=== PATIENT | female | born 1950 | race Caucasian/White ===

== ENCOUNTER → 2017-07-06 | Outpatient (CLI) | payer BC ==
[~2017-07-06] MED LIST: AMLO5TAB2 PO; ATEN100T PO; GABA300S PO; HYDR-3422 PO; LORA2TAB2 PO; LOSA1TAB42 PO; METH500T6 PO; PANT20TA12 PO; PRAV40TA3 PO; TRAM-355 PO
== END ==
LOC: SHCH 09:26
PROVIDERS: ATTEND Internal Medicine Cardiovascular Disease
DX: I48.91 Unspecified atrial fibrillation (principal); I10 Essential (primary) hypertension
CPT/HCPCS: 93306

== ENCOUNTER → 2017-07-15 | Outpatient (CLI) | payer BC, SELFPAY | END | disposition home or self-care (01) | LOC: DTH 10:03 | PROVIDERS: ATTEND Surgery | DX: E66.01 Morbid (severe) obesity due to excess calories (principal) | CPT/HCPCS: 97802 ==

== ENCOUNTER → 2017-10-25 | Outpatient (CLI) | payer BC | END | disposition home or self-care (01) | LOC: OIH 12:50 | PROVIDERS: ATTEND Internal Medicine | DX: M47.894 Other spondylosis, thoracic region (principal); M40.294 Other kyphosis, thoracic region; M48.04 Spinal stenosis, thoracic region; M25.78 Osteophyte, vertebrae | CPT/HCPCS: 71046; 72070 ==

== ENCOUNTER → 2018-06-27 | Outpatient (CLI) | payer BC ==
[~2018-06-27] MED LIST changes: -AMLO5TAB2 PO; +AMLO5TAB9 PO
== END | disposition home or self-care (01) ==
LOC: RAH 12:51
PROVIDERS: ATTEND Internal Medicine
DX: K44.9 Diaphragmatic hernia without obstruction or gangrene (principal); I25.10 Atherosclerotic heart disease of native coronary artery without angina pectoris; Z90.49 Acquired absence of other specified parts of digestive tract
CPT/HCPCS: 71250

== ENCOUNTER → 2018-07-25 | Outpatient (CLI) | payer BC ==
[~2018-07-25] MED LIST changes: +REGADENOSON 0.4 MG/5 ML PF SYG IVP SCH
== END | disposition home or self-care (01) ==
LOC: SHCH 07-24 08:29
PROVIDERS: ATTEND Internal Medicine Cardiovascular Disease
DX: I25.10 Atherosclerotic heart disease of native coronary artery without angina pectoris (principal); I10 Essential (primary) hypertension; I35.0 Nonrheumatic aortic (valve) stenosis
CPT/HCPCS: 78452; 93017; 96374; A9500 ×2; J2785

== ENCOUNTER → 2018-09-27 | Outpatient (CLI) | payer BC, MEDICARE ==
[~2018-09-27] MED LIST changes: -REGADENOSON 0.4 MG/5 ML PF SYG IVP SCH
== END | disposition home or self-care (01) ==
LOC: RAH 15:24
PROVIDERS: ATTEND Internal Medicine
DX: M47.14 Other spondylosis with myelopathy, thoracic region (principal)
CPT/HCPCS: 72146

== ENCOUNTER → 2019-11-15 | Outpatient (CLI) | payer MEDICARE ==
[~2019-11-15] MED LIST changes: -PANT20TA12 PO; +PANT20TA18 PO
== END | disposition home or self-care (01) ==
LOC: SHCH 14:37
PROVIDERS: ATTEND Internal Medicine Cardiovascular Disease
DX: I34.0 Nonrheumatic mitral (valve) insufficiency (principal); R42 Dizziness and giddiness
CPT/HCPCS: 93306; 93356

== ENCOUNTER → 2022-01-21 | Outpatient (CLI) | payer MEDICARE ==
[~2022-01-21] MED LIST changes: +AMLO-257 PO; -AMLO5TAB9 PO; +METH-811 PO; -METH500T6 PO
== END | disposition home or self-care (01) ==
LOC: SHCH 13:05
PROVIDERS: ATTEND Internal Medicine Cardiovascular Disease
DX: I08.3 Combined rheumatic disorders of mitral, aortic and tricuspid valves (principal); R55 Syncope and collapse
CPT/HCPCS: 93306

== ENCOUNTER → 2022-04-07 | Outpatient (CLI) | payer MEDICARE | END | disposition home or self-care (01) | LOC: RAH 09:19 | PROVIDERS: ATTEND Internal Medicine Gastroenterology | DX: K44.9 Diaphragmatic hernia without obstruction or gangrene (principal); K21.9 Gastro-esophageal reflux disease without esophagitis; R13.10 Dysphagia, unspecified | CPT/HCPCS: 74220 ==

== ENCOUNTER → 2022-04-12 | Outpatient (CLI) | payer MEDICARE | END | disposition home or self-care (01) | LOC: RAH 06:51 | PROVIDERS: ATTEND Internal Medicine Gastroenterology | DX: R11.2 Nausea with vomiting, unspecified (principal) | CPT/HCPCS: 78264; A9541 ==

== ENCOUNTER → 2022-06-21 | Outpatient (CLI) | payer MEDICARE ==
[~2022-06-21] MED LIST changes: +REGADENOSON 0.4 MG/5 ML PF SYG IVP SCH
== END | disposition home or self-care (01) ==
LOC: SHCH 09:00
PROVIDERS: ATTEND Internal Medicine Cardiovascular Disease
DX: Z01.810 Encounter for preprocedural cardiovascular examination (principal); K43.9 Ventral hernia without obstruction or gangrene; R06.02 Shortness of breath; I08.0 Rheumatic disorders of both mitral and aortic valves; I10 Essential (primary) hypertension; Z79.899 Other long term (current) drug therapy; Z98.890 Other specified postprocedural states
CPT/HCPCS: 78452; 96374; 93017; J2785; A9500 ×2

== ENCOUNTER → 2022-12-31 | Outpatient (CLI) | payer MEDICARE ==
[~2022-12-31] MED LIST changes: -GABA300S PO; +GABA300S3 PO; +IOHEXOL 350 MG/ML 100ML INFUS..BTL IV ONE; -REGADENOSON 0.4 MG/5 ML PF SYG IVP SCH
== END | disposition home or self-care (01) ==
LOC: RAH 10:22
PROVIDERS: ATTEND Surgery
DX: K44.9 Diaphragmatic hernia without obstruction or gangrene (principal); K31.84 Gastroparesis; K43.9 Ventral hernia without obstruction or gangrene; R13.10 Dysphagia, unspecified; K91.1 Postgastric surgery syndromes; Z90.49 Acquired absence of other specified parts of digestive tract
CPT/HCPCS: 74177; Q9967

== ENCOUNTER → 2023-06-27 | Outpatient (CLI) | payer MEDICARE, OTHER ==
[~2023-06-27] MED LIST changes: -IOHEXOL 350 MG/ML 100ML INFUS..BTL IV ONE
== END | disposition home or self-care (01) ==
LOC: SHCH 10:54
PROVIDERS: ATTEND Internal Medicine Cardiovascular Disease
DX: I08.1 Rheumatic disorders of both mitral and tricuspid valves (principal); R00.1 Bradycardia, unspecified
CPT/HCPCS: 93306

== ENCOUNTER → 2024-05-18 | Outpatient (CLI) | payer MEDICARE, OTHER ==
[~2024-05-18] MED LIST changes: -TRAM-355 PO; +TRAM-543 PO
== END | disposition home or self-care (01) ==
LOC: SHCH 13:09
PROVIDERS: ATTEND Internal Medicine Cardiovascular Disease
DX: I35.0 Nonrheumatic aortic (valve) stenosis (principal)
CPT/HCPCS: 93306

== ENCOUNTER → 2024-05-28 | Outpatient (CLI) | payer MEDICARE, OTHER ==
[2024-05-28 16:52] LABS: ALBUMIN 3.4 g/dL (3.5-5.0); BILIRUBIN,TOTAL 0.5 mg/dL (0.2-1.0); CREATININE 1.7 mg/dL (0.5-1.0); POTASSIUM 5.4 mmol/L (3.5-5.1); TOTAL PROTEIN, SERUM 6.9 g/dL (6.0-8.3)
== END | disposition home or self-care (01) ==
LOC: LAB 13:43
PROVIDERS: ATTEND Student in an Organized Health Care Education/Training Program
DX: N18.9 Chronic kidney disease, unspecified (principal)
CPT/HCPCS: 36415; 80053

== ENCOUNTER → 2024-05-29 | Outpatient (CLI) | payer MEDICARE ==
--- NOTE | 2024-05-29 16:22 | HMCSR ---
APPROVED REPORT Bilateral Lower Extremity Venous Study for DVT., Venous Competence. Indications STAT; R60.9 Vein Imaging CFV (R): Normal flow, augmentation and compression. No evidence of DVT. 12.2mm 444ms of reflux. SFJ (R): Normal flow, augmentation and compression. No evidence of DVT. FEM (R): Normal flow, augmentation and compression. No evidence of DVT. POP (R): Normal flow, augmentation and compression. No evidence of DVT. DFV (R): Normal flow, augmentation and compression. No evidence of DVT. PTV (R): Normal flow, augmentation and compression. No evidence of DVT. Peroneals (R): Normal flow, augmentation and compression. No evidence of DVT. CFV (L): Normal flow, augmentation and compression. No evidence of DVT. 10.5mm 1394ms of reflux. SFJ (L): Normal flow, augmentation and compression. No evidence of DVT. FEM (L): Normal flow, augmentation and compression. No evidence of DVT. POP (L): Normal flow, augmentation and compression. No evidence of DVT. DFV (L): Normal flow, augmentation and compression. No evidence of DVT. PTV (L): Normal flow, augmentation and compression. No evidence of DVT. Peroneals (L): Normal flow, augmentation and compression. No evidence of DVT. Technologist Impression Deep veins of the bilateral lower extremities appear patent and compressible without thrombus. Deep venous reflux noted in the LCFV. Superficial venous insufficiency noted in the RGSV and LGSV. RGSV junction 8.6mm 989ms thigh 5.0mm 539ms knee 5.8mm 1000ms (DEEP) calf 2.8mm 2500ms RSSV prox 1.9mm 0.0ms mid 2.5mm 0.0ms LGSV junction 7.4mm 0.0ms thigh 6.1mm 2006ms knee 3.7mm 439ms (DEEP) calf 2.9mm 3261ms LSSV prox 1.1mm 0.0ms mid 1.1mm 0.0ms Conclusion Deep veins of the bilateral lower extremities appear patent and compressible without thrombus. Deep venous reflux noted in the LCFV. Superficial venous insufficiency noted in the RGSV and LGSV. Conclusion Deep veins of the bilateral lower extremities appear patent and compressible without thrombus. Deep venous reflux noted in the LCFV. Superficial venous insufficiency noted in the RGSV and LGSV.
== END | disposition home or self-care (01) ==
LOC: SHCH 12:27
PROVIDERS: ATTEND Student in an Organized Health Care Education/Training Program
DX: I87.2 Venous insufficiency (chronic) (peripheral) (principal); R60.9 Edema, unspecified
CPT/HCPCS: 93970

== ENCOUNTER → 2024-06-05 | Outpatient (CLI) | payer MEDICARE ==
[~2024-06-05] MED LIST changes: +ACET-2079 PO; +ESOM40CA66 PO; +HYDR50TA36 PO; +LORA2TAB80 PO; +MELO-108 PO; +METO25 PO; +PRAM0.129 PO; +ROSU5TAB51 PO; +TRAM50TA4 PO
[2024-06-05 12:18] LABS: ALBUMIN 3.2 g/dL (3.5-5.0); BILIRUBIN,TOTAL 0.6 mg/dL (0.2-1.0); CREATININE 1.6 mg/dL (0.5-1.0); POTASSIUM 5.9 mmol/L (3.5-5.1); TOTAL PROTEIN, SERUM 6.7 g/dL (6.0-8.3)
== END | disposition home or self-care (01) ==
LOC: LAB 11:10
PROVIDERS: ATTEND Student in an Organized Health Care Education/Training Program
DX: E87.5 Hyperkalemia (principal)
CPT/HCPCS: 36415; 80053

== ENCOUNTER 2024-06-06 13:14 | Observation (INO) | payer MEDICARE ==
[~2024-06-06] VITALS: Ht 167.6 cm; Wt 98.9 kg
[~2024-06-06 13:14] MED LIST changes: -ACET-2079 PO; -ESOM40CA66 PO; -HYDR50TA36 PO; -LORA2TAB80 PO; -MELO-108 PO; -METO25 PO; -PRAM0.129 PO; -ROSU5TAB51 PO; -TRAM50TA4 PO
--- NOTE | 2024-06-06 13:20 | ERN ---
ED Note History of Present Illness Stated Complaint: SENT BY HIGH ROHAN ORTIZ Chief Complaint: Abnormal Labs Time Seen by MD: 13:15 Dictation: PATIENT IS SENT TO THE EMERGENCY ROOM BY DR. JERE PASTRANA WITH COMPLAINTS OF ELEVATED POTASSIUM 5.9 ON LABS DRAWN YESTERDAY. PATIENT HAS NO SPECIFIC, STATES SHE IS UNAWARE OF ANY CHRONIC KIDNEY DISEASE. NO CHEST PAIN NO BACK PAIN NO SOB. Allergies: Coded Allergies: No Known Drug Allergies (Unverified Allergy, Unknown, 09/09/16) Home Meds Reported Medications Rosuvastatin Calcium (Rosuvastatin Calcium) 5 Mg Tablet, 1 TAB PO DAILY 06/06/24 Meloxicam (Meloxicam) 15 Mg Tablet, 0.5-1 TAB PO DAILY 06/06/24 Esomeprazole Magnesium (Esomeprazole Magnesium) 40 Mg Capsule., 1 CAP PO DAILY 06/06/24 Metoprolol Tartrate (Lopressor) 25 Mg Tab, 1 TAB PO BID 06/06/24 Lorazepam (Ativan) 2 Mg Tablet, 2 MG PO Q6HPRN PRN for INSOMNIA 06/06/24 Pramipexole Di-HCl (Pramipexole Dihydrochloride) 0.125 Mg Tablet, 1 TAB PO HS 06/06/24 Tramadol Hcl (Tramadol HCl) 50 Mg Tablet, 0.5-1 TAB PO QIDP PRN for PAIN 06/06/24 Acetaminophen with Codeine (Acetaminophen-Cod #3 Tablet) 300 Mg-30 Mg Tablet, 1 TAB PO Q6H 06/06/24 Hydralazine HCl (Apresoline) 50 Mg Tab, 1 TAB PO BID 06/06/24 Lorazepam (Lorazepam) 2 Mg Tablet, 2 MG PO BID, TAB 12/06/16 Losartan/Hydrochlorothiazide (Losartan-Hctz 100-12.5 mg Tab) 1 Each Tablet, 1 EACH PO DAILYBKFST, TAB 12/06/16 Pantoprazole Sodium (Pantoprazole Sodium) 20 Mg Tablet., 20 MG PO DAILY, TAB 12/06/16 Gabapentin (Gabapentin) 300 Mg/6 Ml Solution, 300 MG PO HS, ML 12/06/16 Hydroxyzine HCl (Hydroxyzine HCl) 50 Mg Tablet, 50 MG PO HS, TAB 12/06/16 Methocarbamol (Methocarbamol) 500 Mg Tablet, 500 MG PO Q8H PRN for MUSCLE SPASM, TAB 12/06/16 Pravastatin Sodium (Pravastatin Sodium) 40 Mg Tablet, 40 MG PO HS, TAB 12/06/16 Tramadol HCl/Acetaminophen (Tramadol-Acetaminophn 37.5-325) 1 Each Tablet, 2 CAP PO BIDAC, TAB 12/06/16 Amlodipine Besylate (Amlodipine Besylate) 5 Mg Tablet, 5 MG PO DAILYLUNCH, TAB 12/06/16 Atenolol (Atenolol) 100 Mg Tablet, 100 MG PO HS, TAB 12/06/16 Past Medical History History: Not Applicable RN Note Reviewed/Agreed w/PFSH: Yes Review of System Dictation CONSTITUTIONAL: NEGATIVE EXCEPT FOR HPI HEAD/FACE: NEGATIVE EXCEPT FOR HPI EENT: NEGATIVE EXCEPT FOR HPI RESPIRATORY: NEGATIVE EXCEPT FOR HPI GASTROINTESTINAL/ABDOMINAL: NEGATIVE EXCEPT FOR HPI GENITOURINARY: NEGATIVE EXCEPT FOR HPI MUSCULOSKELETAL: NEGATIVE EXCEPT FOR HPI INTEGUMENTARY: NEGATIVE EXCEPT FOR HPI NEUROLOGICAL/PSYCH: NEGATIVE EXCEPT FOR HPI HEMATOLOGIC/LYMPHATIC: NEGATIVE EXCEPT FOR HPI ALL SYSTEMS NEGATIVE, EXCEPT NOTED ABOVE. 13 POINT REVIEW OF SYSTEMS ASSESSED AND ALL NEGATIVE EXCEPT FOR ABOVE. Initial Vital Sign VS Vital Signs Date Time Temp Pulse Resp B/P (MAP) Pulse Ox O2 Delivery O2 Flow Rate FiO2 06/06/24 13:17 98.1 69 16 181/65 99 Room Air 06/06/24 13:27 0 21 Physical Exam Dictation VITAL SIGNS REVIEWED GENERAL APPEARANCE: ALERT, ORIENTED X 3, NO ACUTE DISTRESS, WELL DEVELOPED, NOURISHED. OBESE 0/10 PAIN HEAD AND FACE: NON-TRAUMATIC. EYES: PERRL, PINK CONJUNCTIVAS, EYELID NO TRAUMA, ANTERIOR CHAMBER WITH ARCUS S ENILIS. EARS: PINNAS INTACT AND NO SIGNS OF TRAUMA OR ERYTHEMA EAR CANALS CLEAR AND NO DISCHARGE TM NO ERYTHEMA NOSE: NO DISCHARGE, NO BLEEDING. OROPHARYNX: MOUTH NORMAL, TONGUE PINK, PHARYNX CLEAR,NO ERYTHEMA, TONSILS NO EXUDATES, NO ABSCESSES NOTED, MUCOUS MEMBRANE MOIST NECK: SUPPLE, NON-TENDER, NO THYROMEGALY, NO MASSES, NO JVD, NO BRUITS BREAST:DEFERRED CHEST:NO TENDERNESS, NO CREPITUS, NO PARADOXICAL MOVEMENT, NO RETRACTIONS LUNGS:CLEAR, WELL-VENTILATED, SYMMETRIC, NO RALES, NO WHEEZING, NO RHONCHI, NO STRIDOR, GOOD BREATH SOUNDS BILATERALLY HEART: REGULAR RATE, REGULAR RHYTHM, NO MURMUR, NO GALLOPS VASCULAR: NO PERIPHERAL EDEMA, ABDOMEN: SOFT, POSITIVE BOWEL SOUNDS, NONDISTENDED, NO GUARDING, NONTENDER, NO REBOUND, NO MASSES NO HEPATOMEGALY, NO SPLENOMEGALY, NO HOPPER'S SIGN, NO HERNIAS. RECTAL: DEFERRED GENITAL: DEFERRED NEUROLOGICAL: NORMAL SPEECH, MOTOR FUNCTION INTACT, SENSORY FUNCTION INTACT MUSCULOSKELETAL: NECK NONTENDER, FULL RANGE OF MOTION, BACK NONTENDER, FULL RANGE OF MOTION, EXTREMITIES: NONTENDER, FULL RANGE OF MOTION SKIN: COLOR PINK, DRY, NO TURGOR, NO RASH, NO LACERATIONS, NO ABRASIONS, NO CONTUSIONS. LYMPHATIC: DEFERRED Results (Laboratory/Radiology) Laboratory/Radiology Laboratory Tests Test 06/06/24 13:40 06/06/24 17:47 White Blood Count 6.3 K/uL (4.8-10.8) Red Blood Count 3.94 MIL/uL (4.00-5.50) L Hemoglobin 11.8 g/dL (12.0-16.0) L Hematocrit 36.4 % (36-48) Mean Corpuscular Volume 92.4 fL (79-99) Mean Corpuscular Hemoglobin 29.9 pg (27.0-33.0) Mean Corpuscular Hemoglobin Concent 32.4 g/dL (32.0-36.0) Red Cell Distribution Width 12.6 % (11.0-15.5) Platelet Count 272 K/uL (130-400) Mean Platelet Volume 10.9 fL (7.5-10.5) H Immature Granulocyte % (Auto) 0.3 % (0-1) Neutrophils (%) (Auto) 54.1 % (40.0-77.0) Lymphocytes (%) (Auto) 27.7 % (21.0-51.0) Monocytes (%) (Auto) 11.6 % (3.0-13.0) Eosinophils (%) (Auto) 5.5 % (0.0-8.0) Basophils (%) (Auto) 0.8 % (0.0-5.0) Neutrophils # (Auto) 3.4 K/uL (1.8-7.7) Lymphocytes # (Auto) 1.8 K/uL (1.0-4.8) Monocytes # (Auto) 0.7 K/uL (0.1-1.0) Eosinophils # (Auto) 0.35 K/uL (0.00-0.70) Basophils # (Auto) 0.05 K/uL (0.00-0.20) Absolute Immature Granulocyte (auto 0.02 K/uL (0-1) Nucleated Red Blood Cells 0.0 % (0.0-0.19) Sodium Level 136 mmol/L (136-145) 138 mmol/L (136-145) Potassium Level 5.5 mmol/L (3.5-5.1) H 6.0 mmol/L (3.5-5.1) *H Chloride Level 104 mmol/L (101-111) 106 mmol/L (101-111) Carbon Dioxide Level 25 mmol/L (21-32) 25 mmol/L (21-32) Blood Urea Nitrogen 28 mg/dL (7-18) H 27 mg/dL (7-18) H Creatinine 1.6 mg/dL (0.5-1.0) H 1.6 mg/dL (0.5-1.0) H Glomerular Filtration Rate Calc 34 mL/min (>90) 34 mL/min (>90) Random Glucose 84 mg/dL (70-105) 191 mg/dL (70-105) #H Total Calcium 8.9 mg/dL (8.5-10.1) 8.9 mg/dL (8.5-10.1) Labs Reviewed?: Yes EKG Comment: EKG SINUS RHYTHM/HEART RATE 62/LEFT VENTRICULAR HYPERTROPHY/PEAKED T-WAVES V4 FIVE AND SIX ED Course ED Course Orders Procedure Category Date Status Time Cbc With Differential LAB 06/06/24 Complete 13:19 12 Lead Ekg Tracing- EKG 06/06/24 Complete Technical 13:19 Basic Metabolic Panel LAB 06/06/24 Complete 13:19 Sodium Polystyr Sulf PHA 06/06/24 Complete 15gm (Kayexalate 15 15:30 Calcium Gluc 1gm PHA 06/06/24 Complete (Calcium Gluc 1gm 16:30 Dextrose 50%-Water PHA 06/06/24 Complete (Dextrose 50%-Water) 16:30 Insulin Regular, PHA 06/06/24 Complete Human 3ml (Humulin R 16:30 Dextrose 50%-Water PHA 06/06/24 Complete (D50w) 16:30 Basic Metabolic Panel LAB 06/06/24 Complete 17:33 Na Zircon PHA 06/06/24 Complete Cyclosil-Lokelma 10g 19:00 Nephrology Consult CONPHYSVC 06/06/24 Transmitted 19:34 Admit Orders ADM 06/06/24 Transmitted 19:42 Edm Admit Bridge Order ADM 06/06/24 Transmitted 19:42 Vital Signs(Adult CPOE 06/06/24 Transmitted Hospitalist) 20:00 Nurse To Enter Home CPOE 06/06/24 Transmitted Medication 20:00 Admit Orders ADM 06/06/24 Transmitted 20:00 *Nursing CPOE 06/06/24 Transmitted Communication: 20:00 Na Zircon PHA 06/06/24 Complete Cyclosil-Lokelma 10g 21:00 Heart Healthy Diet DIET 06/07/24 Transmitted Breakfast Cbc With Differential LAB 06/07/24 In Process 04:00 Comprehensive LAB 06/07/24 In Process Metabolic Panel 04:00 Acetaminophen With PHA 06/06/24 In Process Codeine (Tylenol-Code 23:30 Amlodipine 5 Mg Tab PHA 06/07/24 In Process (Norvasc 5mg Tab) 12:00 Metoprolol Tartrate PHA 06/07/24 In Process 25 Mg Tab (Lopressor 09:00 Tramadol Hcl (Ultram) PHA 06/06/24 In Process 23:00 Pantoprazole 40mg Tab PHA 06/07/24 In Process (Protonix 40mg Tab 09:00 Hydralazine 25mg Tab PHA 06/07/24 In Process ([id number] Tab 09:00 Hydroxyzine 25mg Tab PHA 06/07/24 In Process (Atarax 25mg Tab) 21:00 Home Medication (Home PHA 06/07/24 In Process Medication) 09:00 Pramipexole Di-Hcl PHA 06/07/24 In Process (Mirapex 0.25mg Tab) 21:00 Atorvastatin 10mg PHA 06/07/24 In Process (Lipitor 10mg) 09:00 Hydralazine 25mg Tab PHA 06/06/24 Complete ([id number] Tab 23:30 Metoprolol Tartrate PHA 06/06/24 Complete 25 Mg Tab (Lopressor 23:30 Current Medications Medications (Trade) Dose Ordered Sig/Neisha Route PRN Reason Start Time Stop Time Status Last Admin Dose Admin Calcium Gluconate 1 gm/Sodium Chloride 110 ml @ 110 mls/hr ONCE ONCE IV 06/06/24 16:30 06/06/24 17:29 DC 06/06/24 16:56 Dextrose (D50w) 25 ml ONCE ONCE IV 06/06/24 16:30 06/06/24 16:31 DC 06/06/24 16:45 Dextrose (Dextrose 50%-Water) 25 gm ONCE ONCE IV 06/06/24 16:30 06/06/24 16:28 DC Insulin Human Regular (humuLIN R 100 UNIT/ML 3ML) 5 unit ONCE ONCE IV 06/06/24 16:30 06/06/24 16:31 DC 06/06/24 16:44 Sodium Polystyrene Sulfonate (kayEXALate 15 GM/60 ML) 15 gm ONCE ONCE PO 06/06/24 15:30 06/06/24 15:31 DC 06/06/24 15:48 Sodium Zirconium Cyclosilicate (Lokelma 10gm Powder) 10 gm ONCE ONCE PO 06/06/24 19:00 06/06/24 19:01 DC 06/06/24 19:25 Vital Signs Date Time Temp Pulse Resp B/P (MAP) Pulse Ox O2 Delivery O2 Flow Rate FiO2 06/06/24 23:34 98 Room Air* 0 06/06/24 22:20 98 Room Air* 0 06/06/24 22:10 98.8 66 14 167/66 97 Room Air* 0 06/06/24 20:49 98.8 60 14 167/64 99 Room Air* 0 06/06/24 19:48 98.8 63 14 163/67 99 Room Air* 0 06/06/24 18:44 98.8 59 14 161/57 100 Room Air* 0 06/06/24 15:45 98.8 61 14 172/84 100 Room Air* 0 06/06/24 13:27 98.1 69 16 181/65 99 Room Air* 0 06/06/24 13:17 98.1 69 16 181/65 99 Room Air 1600/SPOKE TO DR. CRAWFORD NEPHROLOGY REVIEWED EKG LABS AND MY INTERVENTIONS FOR PATIENT HYPERKALEMIA. HE SAID TO GET PATIENT HAS POTASSIUM UNDER CONTROL OKAY TO DISCHARGED HOME AND HAVE HIM FOLLOW UP IN HIS OFFICE ON TUESDAY. 1855/REPEAT POTASSIUM 6.0 AFTER HYPERKALEMIA COCKTAIL. WE WILL GIVE LOKELMA 10 MG P.O. AND PATIENT WILL BE ADMITTED TO THE HOSPITAL. DISCUSSED THIS WITH PATIENT AND HER AND THEY AGREED TO STAY. 1940/SPOKE WITH AND REVIEWED EKG LABS AND INTERVENTIONS FOR HYPERKALEMIA TO INCLUDE THE INITIAL COCKTAIL WITH KAYEXALATE, THEN LOKELMA 10 G. HE AGREED TO ADMIT PATIENT. Medical Decision Making MDM MDM: DIFFERENTIAL DIAGNOSIS: ACUTE ON CHRONIC KIDNEY FAILURE/HYPERKALEMIA/DEHYDRATION RATIONALE: TESTS CONSIDERED AND ORDERED SECONDARY TO SHARED DECISION MAKING INCLUDE: LABS, ECG PREVIOUS OUTSIDE RECORDS REVIEWED: OLD ER VISITS. REVIEWED RISK OF COMPLICATION AND/OR MORBIDITY OR MORTALITY OF PATIENT MANAGEMENT: MODERATE MEDICATIONS-PER MEDICATION RECONCILIATION NEED FOR HOSPITALIZATION: PATIENT DOES MEET CRITERIA FOR HOSPITALIZATION. YES PATIENT WILL NEED BE ADMITTED FOR NEPHROLOGY CONSULTATION AND MANAGEMENT OF HER HYPERKALEMIA NEED FOR EMERGENCY MAJOR/MINOR SURGERY: NO THERE ARE NO SOCIAL CONCERNS WITH THIS PATIENT. PRESCRIPTION DRUG MANAGEMENT PRESCRIPTIONS WILL INCLUDE SYMPTOMATIC CARE PATIENT'S PRIOR EXTERNAL MEDICAL RECORDS FROM OTHER ER VISITS WERE REVIEWED BY ME INDICATED. PRIOR TESTING AND RESULTS FROM PREVIOUS VISITS WERE REVIEWED. PRIOR TESTS WERE TAKEN INTO ACCOUNT WITH MEDICAL DECISION MAKING AND RESOURCE UTILIZATION, INDEPENDENT HISTORIAN/HISTORIANS WERE USED TO OBTAIN COMPLETE MEDICAL HISTORY. I INDEPENDENTLY INTERPRETED THE TEST THAT WERE PERFORMED, RESULTS WERE REVIEWED BY ME AND CONSIDERED FINDINGS ON RADIOLOGY IF ORDERED. MEDICAL MANAGEMENT AND EXAMINATION INTERPRETATION DISCUSSIONS WERE HAD BY ME WITH OTHER QUALIFIED HEALTHCARE PROFESSIONALS INDICATED FOR THE PATIENT'S CARE. DX & DISP Disposition: Inpatient Decision to Admit Time: 19:41 Departure Impression: Primary Impression: Hyperkalemia Additional Impressions: Stage 3 chronic kidney disease, Hyperglycemia, Anemia of chronic renal failure, stage 3b Critical Time: 30 minutes (Critical Care Procedure NoteAuthorized and Performed by: meTotal critical care time: Approximately 36 minutesDue to a high probability of clinically significant, life threatening deterioration, the patient required my highest level of preparedness to intervene emergently and I personally spent this critical care time directly and personally managing the patient. This critical care time included obtaining a history; examining the patient; pulse oximetry; ordering and review of studies; arranging urgent treatment with development of a management plan; evaluation of patient's response to treatment; frequent reassessment; and, discussions with other providers.This critical care time was performed to assess and manage the high probability of imminent, life-threatening deterioration that could result in multi-organ failure. It was exclusive of separately billable procedures and treating other patients and teaching time.Please see MDM section and the rest of the note for further information on patient assessment and treatment.) Condition: Improved Referrals: GURINDER VILA MD (PCP) Time of Disposition: 18:56 I have reviewed the case, and I agree with, Diagnosis and Plan I performed a substantive portion of the visit. I have reviewed and personally made and approve the management plan that is documented in the notes by myself with INO/resident. I acknowledged full responsibility for the patient's management plan. RADHA BAEZA NP Jun 06, 2024 13:20 COLIN SANCHEZ DO Jun 07, 2024 00:33
--- NOTE | 2024-06-06 13:41 | EKG ---
[facility] Test Date: 2024-06-06 Test Time: 13:34:40 Pat Name: SHARON OROURKE Department: ED Room: 303 Gender: F Global Program Director: [id number] : 1950 Requested By: RADHA BAEZA Order Number: [id number] Reading MD: Gustavo Glass Measurements Intervals [place] Rate: 62 P: 39 WY: 175 QRS: 27 QRSD: 83 T: 42 QT: 417 QTc: 425 Interpretive Statements Sinus rhythm Probable left ventricular hypertrophy Compared to ECG 12/06/2016 10:49:35 First degree AV block no longer present Electronically Signed On 06-07-2024 10:23:25 MANAGER OF PHARMACY by Gustavo Glass Please click the below link to view image of tracing.
[2024-06-06 13:48] LABS: BASOPHILS # (AUTO) 0.05 K/uL (0.00-0.20); BASOPHILS % (AUTO) 0.8 % (0.0-5.0); EOSINOPHILS # (AUTO) 0.35 K/uL (0.00-0.70); EOSINOPHILS % (AUTO) 5.5 % (0.0-8.0); HEMATOCRIT 36.4 % (36-48); IMMATURE GRANULOCYTE ABSOLUTE 0.02 K/uL (0-1); LYMPHOCYTES # (AUTO) 1.8 K/uL (1.0-4.8); LYMPHOCYTES % (AUTO) 27.7 % (21.0-51.0); MEAN CORPUSCULAR HEMOGLOBIN 29.9 pg (27.0-33.0); MEAN CORPUSCULAR HGB CONC 32.4 g/dL (32.0-36.0); MEAN CORPUSCULAR VOLUME 92.4 fL (79-99); MONOCYTES # (AUTO) 0.7 K/uL (0.1-1.0); MONOCYTES % (AUTO) 11.6 % (3.0-13.0); NEUTROPHILS # (AUTO) 3.4 K/uL (1.8-7.7); NEUTROPHILS % (AUTO) 54.1 % (40.0-77.0); PLATELET COUNT (AUTO) 272 K/uL (130-400); RED BLOOD CELL COUNT(AUTO) 3.94 MIL/uL (4.00-5.50); RED CELL DISTRIBUTION WIDTH 12.6 % (11.0-15.5); WHITE BLOOD COUNT (AUTO) 6.3 K/uL (4.8-10.8)
[2024-06-06 14:03] LABS: CREATININE 1.6 mg/dL (0.5-1.0); POTASSIUM 5.5 mmol/L (3.5-5.1)
[2024-06-06] MEDS: kayEXALate 15GM/60ML PO ONE (15:48)
[2024-06-06] MEDS ORDERED: DEXTROSE 50%-WATER 25 GM/50 ML VIAL IV ONE (16:30)
[2024-06-06] MEDS: INSULIN humuLIN R 100 UNIT/ML 3ML IV ONE (16:44)
[2024-06-06] MEDS: DEXTROSE 50%-WATER 50 ML DISP.SYRIN IV ONE (16:45)
[2024-06-06] MEDS: CALCIUM GLUC 1GM 1 GM in 0.9%NACL 100ML 100 ML IV ONE (16:56)
[2024-06-06 18:14] LABS: CREATININE 1.6 mg/dL (0.5-1.0)
--- NOTE | 2024-06-06 19:14 | NUR ---
TOOK OVER PATIENT AT THIS TIME
[2024-06-06] MEDS: NA ZIRCON CYCLOSIL(LOKELMA 10GM) PO ONE ×2 (19:25→21:14)
--- NOTE | 2024-06-06 21:29 | HP ---
HISTORY AND PHYSICAL NOTE DATE OF CONSULTATION: 06/06/24 REASON FOR CONSULTATION: Abnormal lab HISTORY OF PRESENT ILLNESS: PATIENT IS SENT TO THE EMERGENCY ROOM BY DR. JERE PASTRANA WITH COMPLAINTS OF ELEVATED POTASSIUM 5.9 ON LABS DRAWN YESTERDAY. PATIENT HAS NO SPECIFIC, STATES SHE IS UNAWARE OF ANY CHRONIC KIDNEY DISEASE. NO CHEST PAIN NO BACK PAIN NO SOB. Allergies: Coded Allergies: No Known Drug Allergies (Unverified Allergy, Unknown, 09/09/16) Home Meds Reported Medications Lorazepam (Lorazepam) 2 Mg Tablet, 2 MG PO BID, TAB 12/06/16 Losartan/Hydrochlorothiazide (Losartan-Hctz 100-12.5 mg Tab) 1 Each Tablet, 1 EACH PO DAILYBKFST, TAB 12/06/16 Pantoprazole Sodium (Pantoprazole Sodium) 20 Mg Tablet.dr, 20 MG PO DAILY, TAB 12/06/16 Gabapentin (Gabapentin) 300 Mg/6 Ml Solution, 300 MG PO HS, ML 12/06/16 Hydroxyzine HCl (Hydroxyzine HCl) 50 Mg Tablet, 50 MG PO HS, TAB 12/06/16 Methocarbamol (Methocarbamol) 500 Mg Tablet, 500 MG PO Q8H PRN for MUSCLE SPASM, TAB 12/06/16 Pravastatin Sodium (Pravastatin Sodium) 40 Mg Tablet, 40 MG PO HS, TAB 12/06/16 Tramadol HCl/Acetaminophen (Tramadol-Acetaminophn 37.5-325) 1 Each Tablet, 2 CAP PO BIDAC, TAB 12/06/16 Amlodipine Besylate (Amlodipine Besylate) 5 Mg Tablet, 5 MG PO DAILYLUNCH, TAB 12/06/16 Atenolol (Atenolol) 100 Mg Tablet, 100 MG PO HS, TAB 12/06/16 Past Medical History History: Not Applicable RN Note Reviewed/Agreed w/PFSH: Yes Review of System Dictation CONSTITUTIONAL: NEGATIVE EXCEPT FOR HPI HEAD/FACE: NEGATIVE EXCEPT FOR HPI EENT: NEGATIVE EXCEPT FOR HPI RESPIRATORY: NEGATIVE EXCEPT FOR HPI GASTROINTESTINAL/ABDOMINAL: NEGATIVE EXCEPT FOR HPI GENITOURINARY: NEGATIVE EXCEPT FOR HPI MUSCULOSKELETAL: NEGATIVE EXCEPT FOR HPI INTEGUMENTARY: NEGATIVE EXCEPT FOR HPI NEUROLOGICAL/PSYCH: NEGATIVE EXCEPT FOR HPI HEMATOLOGIC/LYMPHATIC: NEGATIVE EXCEPT FOR HPI ALL SYSTEMS NEGATIVE, EXCEPT NOTED ABOVE. 13 POINT REVIEW OF SYSTEMS ASSESSED AND ALL NEGATIVE EXCEPT FOR ABOVE. ALLERGIES: Coded Allergies: No Known Drug Allergies (Unverified Allergy, Unknown, 09/09/16) HOME MEDS: Reported Medications Lorazepam (Lorazepam) 2 Mg Tablet, 2 MG PO BID, TAB 12/06/16 Losartan/Hydrochlorothiazide (Losartan-Hctz 100-12.5 mg Tab) 1 Each Tablet, 1 EACH PO DAILYBKFST, TAB 12/06/16 Pantoprazole Sodium (Pantoprazole Sodium) 20 Mg Tablet.dr, 20 MG PO DAILY, TAB 12/06/16 Gabapentin (Gabapentin) 300 Mg/6 Ml Solution, 300 MG PO HS, ML 12/06/16 Hydroxyzine HCl (Hydroxyzine HCl) 50 Mg Tablet, 50 MG PO HS, TAB 12/06/16 Methocarbamol (Methocarbamol) 500 Mg Tablet, 500 MG PO Q8H PRN for MUSCLE SPASM, TAB 12/06/16 Pravastatin Sodium (Pravastatin Sodium) 40 Mg Tablet, 40 MG PO HS, TAB 12/06/16 Tramadol HCl/Acetaminophen (Tramadol-Acetaminophn 37.5-325) 1 Each Tablet, 2 CAP PO BIDAC, TAB 12/06/16 Amlodipine Besylate (Amlodipine Besylate) 5 Mg Tablet, 5 MG PO DAILYLUNCH, TAB 12/06/16 Atenolol (Atenolol) 100 Mg Tablet, 100 MG PO HS, TAB 12/06/16 VITAL SIGNS Vital Signs Date Time Temp Pulse Resp B/P (MAP) Pulse Ox O2 Delivery O2 Flow Rate FiO2 06/06/24 20:49 98.8 60 14 167/64 99 Room Air* 0 21 06/06/24 19:48 98.8 63 14 163/67 99 Room Air* 0 21 06/06/24 18:44 98.8 59 14 161/57 100 Room Air* 0 21 06/06/24 15:45 98.8 61 14 172/84 100 Room Air* 0 21 06/06/24 13:27 98.1 69 16 181/65 99 Room Air* 0 21 06/06/24 13:17 98.1 69 16 181/65 99 Room Air PHYSICAL EXAM 0 21 Physical Exam Dictation VITAL SIGNS REVIEWED GENERAL APPEARANCE: ALERT, ORIENTED X 3, NO ACUTE DISTRESS, WELL DEVELOPED, NOURISHED. OBESE 0/10 PAIN HEAD AND FACE: NON-TRAUMATIC. EYES: PERRL, PINK CONJUNCTIVAS, EYELID NO TRAUMA, ANTERIOR CHAMBER WITH ARCUS SENILIS. EARS: PINNAS INTACT AND NO SIGNS OF TRAUMA OR ERYTHEMA EAR CANALS CLEAR AND NO DISCHARGE TM NO ERYTHEMA NOSE: NO DISCHARGE, NO BLEEDING. OROPHARYNX: MOUTH NORMAL, TONGUE PINK, PHARYNX CLEAR,NO ERYTHEMA, TONSILS NO EXUDATES, NO ABSCESSES NOTED, MUCOUS MEMBRANE MOIST NECK: SUPPLE, NON-TENDER, NO THYROMEGALY, NO MASSES, NO JVD, NO BRUITS BREAST:DEFERRED CHEST:NO TENDERNESS, NO CREPITUS, NO PARADOXICAL MOVEMENT, NO RETRACTIONS LUNGS:CLEAR, WELL-VENTILATED, SYMMETRIC, NO RALES, NO WHEEZING, NO RHONCHI, NO STRIDOR, GOOD BREATH SOUNDS BILATERALLY HEART: REGULAR RATE, REGULAR RHYTHM, NO MURMUR, NO GALLOPS VASCULAR: NO PERIPHERAL EDEMA, ABDOMEN: SOFT, POSITIVE BOWEL SOUNDS, NONDISTENDED, NO GUARDING, NONTENDER, NO REBOUND, NO MASSES NO HEPATOMEGALY, NO SPLENOMEGALY, NO HOPPER'S SIGN, NO HERNIAS. RECTAL: DEFERRED GENITAL: DEFERRED NEUROLOGICAL: NORMAL SPEECH, MOTOR FUNCTION INTACT, SENSORY FUNCTION INTACT MUSCULOSKELETAL: NECK NONTENDER, FULL RANGE OF MOTION, BACK NONTENDER, FULL RANGE OF MOTION, EXTREMITIES: NONTENDER, FULL RANGE OF MOTION SKIN: COLOR PINK, DRY, NO TURGOR, NO RASH, NO LACERATIONS, NO ABRASIONS, NO CONTUSIONS. LYMPHATIC: DEFERRED LABORATORY RESULTS Laboratory Tests 06/06/24 13:40: White Blood Count 6.3, Red Blood Count 3.94, Hemoglobin 11.8, Hematocrit 36.4, Mean Corpuscular Volume 92.4, Mean Corpuscular Hemoglobin 29.9, Mean Corpuscular Hemoglobin Concent 32.4, Red Cell Distribution Width 12.6, Platelet Count 272, Mean Platelet Volume 10.9, Immature Granulocyte % (Auto) 0.3, Neutrophils (%) (Auto) 54.1, Lymphocytes (%) (Auto) 27.7, Monocytes (%) (Auto) 11.6, Eosinophils (%) (Auto) 5.5, Basophils (%) (Auto) 0.8, Neutrophils # (Auto) 3.4, Lymphocytes # (Auto) 1.8, Monocytes # (Auto) 0.7, Eosinophils # (Auto) 0.35, Basophils # (Auto) 0.05, Absolute Immature Granulocyte (auto 0.02, Nucleated Red Blood Cells 0.0, Sodium Level 136, Potassium Level 5.5, Chloride Level 104, Carbon Dioxide Level 25, Blood Urea Nitrogen 28, Creatinine 1.6, Glomerular Filtration Rate Calc 34, Random Glucose 84, Total Calcium 8.9 06/06/24 17:47: Sodium Level 138, Potassium Level 6.0, Chloride Level 106, Carbon Dioxide Level 25, Blood Urea Nitrogen 27, Creatinine 1.6, Glomerular Filtration Rate Calc 34, Random Glucose 191, Total Calcium 8.9 PROBLEM LIST: (1) Hyperkalemia ICD Codes: E87.5 - Hyperkalemia (2) Stage 3 chronic kidney disease ICD Codes: N18.30 - Chronic kidney disease, stage 3 unspecified (3) Anemia of chronic renal failure, stage 3b ICD Codes: N18.32 - Chronic kidney disease, stage 3b; D63.1 - Anemia in chronic kidney disease PLAN [facility] monitor consult Nephrology and follow-through asymptomatic at this time GURINDER VILA MD Jun 06, 2024 21:29
--- NOTE | 2024-06-06 22:19 | NUR ---
WILL BRING IN MEDICATIONS TO RECONCILE
[2024-06-06 22:20] VITALS: BP 175/79; PULSE 71; RESP 18; TEMP 97.8; O2SAT 98
[2024-06-06] MEDS ORDERED: ESOM40CA66 PO (22:47)
[2024-06-06] MEDS ORDERED: LORA2TAB80 PO (22:47)
[2024-06-06] MEDS ORDERED: TRAM50TA4 PO (22:47)
[2024-06-06] MEDS ORDERED: METO25 PO (22:47)
[2024-06-06] MEDS ORDERED: ROSU5TAB51 PO (22:47)
[2024-06-06] MEDS ORDERED: MELO-108 PO (22:47)
[2024-06-06] MEDS ORDERED: PRAM0.129 PO (22:47)
[2024-06-06] MEDS ORDERED: HYDR50TA36 PO (22:47)
[2024-06-06] MEDS ORDERED: ACET-2079 PO (22:47)
[2024-06-06] MEDS ORDERED: traMADol HCL 50 MG TABLET PO PRN (23:00)
[2024-06-06] MEDS: metoPROLOL tartRATE 25 MG TAB PO ONE (23:23)
[2024-06-06] MEDS: hydrALAZine 25MG TABLET PO ONE (23:23)
[2024-06-06] MEDS: acetaMINOPHEN WITH coDEINE 1 TAB TAB PO PRN (23:24)
[2024-06-06 23:34] VITALS: O2SAT 98
[2024-06-07] VITALS: BP 132/42; PULSE 68; RESP 18; TEMP 97.6
[2024-06-07 04:00] VITALS: BP 124/67; PULSE 65; RESP 18; TEMP 98
[2024-06-07 04:27] LABS: BASOPHILS # (AUTO) 0.04 K/uL (0.00-0.20); BASOPHILS % (AUTO) 0.7 % (0.0-5.0); EOSINOPHILS # (AUTO) 0.29 K/uL (0.00-0.70); EOSINOPHILS % (AUTO) 4.9 % (0.0-8.0); HEMATOCRIT 31.7 % (36-48); IMMATURE GRANULOCYTE ABSOLUTE 0.01 K/uL (0-1); LYMPHOCYTES # (AUTO) 1.9 K/uL (1.0-4.8); MEAN CORPUSCULAR HEMOGLOBIN 29.3 pg (27.0-33.0); MEAN CORPUSCULAR HGB CONC 32.2 g/dL (32.0-36.0); MEAN CORPUSCULAR VOLUME 91.1 fL (79-99); MONOCYTES # (AUTO) 0.7 K/uL (0.1-1.0); MONOCYTES % (AUTO) 12.1 % (3.0-13.0); NEUTROPHILS # (AUTO) 2.9 K/uL (1.8-7.7); NEUTROPHILS % (AUTO) 49.1 % (40.0-77.0); PLATELET COUNT (AUTO) 234 K/uL (130-400); RED BLOOD CELL COUNT(AUTO) 3.48 MIL/uL (4.00-5.50); RED CELL DISTRIBUTION WIDTH 12.8 % (11.0-15.5); WHITE BLOOD COUNT (AUTO) 5.9 K/uL (4.8-10.8)
[2024-06-07 04:59] LABS: ALBUMIN 2.7 g/dL (3.5-5.0); BILIRUBIN,TOTAL 0.6 mg/dL (0.2-1.0); CREATININE 1.4 mg/dL (0.5-1.0); POTASSIUM 5.2 mmol/L (3.5-5.1); TOTAL PROTEIN, SERUM 5.5 g/dL (6.0-8.3)
[2024-06-07 08:00] VITALS: BP 141/56; PULSE 58; RESP 19; TEMP 98.2
[2024-06-07] MEDS: atorVAStatin 10 MG TABLET PO SCH (08:06)
[2024-06-07] MEDS: furoSEMIDE 20 MG TABLET PO SCH (08:06)
[2024-06-07] MEDS: hydrALAZine 25MG TABLET PO SCH (08:07)
[2024-06-07] MEDS: metoPROLOL tartRATE 25 MG TAB PO SCH (08:08)
[2024-06-07] MEDS: PANTOPrazole 40 MG TAB DR PO SCH (08:08)
[2024-06-07] MEDS: MELOXICAM PO SCH (08:10)
[2024-06-07] MEDS: SODIUM ZIRCONIUM CYCLOSILICATE 5 GM POWD.PACK PO SCH (08:13)
[2024-06-07 08:30] VITALS: O2SAT 98
--- NOTE | 2024-06-07 09:00 | CONS ---
REFERRING PHYSICIAN: Celena Hernandez MD REASON FOR CONSULTATION: Renal failure. HISTORY OF PRESENT ILLNESS: A 74-year-old female with a history of known hypertension. The patient with a history of known coronary artery disease. The patient has been evaluated by Cardiology as an outpatient, was noted to have significant hyperkalemia and the patient was sent to the Emergency Room. In the Emergency Room, the patient was found to have underlying renal dysfunction as well as hyperkalemia. The patient was treated medically for the hyperkalemia and she is being seen in consultation for all of the above. PAST MEDICAL HISTORY: Hypertension, coronary artery disease. SOCIAL HISTORY: No alcohol or tobacco use. FAMILY HISTORY: There is no renal disease in the family. ALLERGIES: There are no allergies. MEDICATIONS: All noted. REVIEW OF SYSTEMS: GENERAL: She is feeling weak and tired. HEENT: No change in vision. No change in hearing. CARDIOVASCULAR: There is no current chest pain or palpitations. PULMONARY: There is no shortness of breath. GASTROINTESTINAL: The patient is tolerating a diet. MUSCULOSKELETAL: Complains of weakness. NEUROLOGIC: No history of seizures or focal deficits. PSYCHIATRIC: No history of hallucinations or psychosis. ENDOCRINE: There is no thyroid disease. PHYSICAL EXAMINATION: VITAL SIGNS: Blood pressure is 141/56, pulse in the 50s. GENERAL: She is a chronically ill female, elderly, lying in bed on medical floor. HEENT: Head is atraumatic. Pupils are equal, roving to light. Oropharynx is without exudate. Nares clear. NECK: There is no JVP. There is no thyromegaly, no mass. CARDIOVASCULAR: Regular. There is no S3, S4 or gallop. LUNGS: Coarse with equal thoracic movement. ABDOMEN: Soft, nondistended, nontender. EXTREMITIES: Reveal no clubbing, no cyanosis. NEUROLOGICAL: She is awake. She is alert. She is oriented. SKIN: Reveals no rash or nodules. BACK: There is no CVA tenderness, no back deformities. LABORATORY DATA: Sodium 143, potassium is 5, BUN 23, creatinine 1.4, hemoglobin 10, hematocrit 31. IMPRESSION: * Acute on chronic renal failure. * Hyperkalemia. * Hypertension. * Coronary artery disease. PLAN: The patient's potassium is much improved. The patient was treated medically for the hyperkalemia. The patient can safely be discharged from renal standpoint. We will repeat the chemistries upon discharge. If the patient continues with hyperkalemia, she can be given Lokelma as an outpatient. The patient's nonsteroidal medications need to be discontinued secondary to her underlying renal dysfunction. We will continue to follow closely. Once the patient is discharged, she can follow up in the [facility]. TID: [id number] RECEIPT: [id number]
[2024-06-07] MEDS: amLODIPine 5 MG TAB PO SCH (12:00)
--- NOTE | 2024-06-07 13:00 | NUR ---
DC NOTE DC INSTRUCTIONS AND FOLLOW UP APPOINTMENTS GIVEN TO PT AND SPOUSE AT BEDSIDE, VERBALIZED UNDERSTANDING. PIV AND TELE MONITOR REMOVED, CATHETER INTACT, DENIES ANY PAIN OR DISCOMFORT AT THIS TIME. PT REFUSED NORVASC AT 12:00 DUE TO DC AND WILL TAKE MEDICATION AT HOME. PT IS WHEELED DOWNSTAIRS WITH [employer] ROOM OPERATOR INTO VIA PRIVATE CAR. NO FURTHER COMMENTS OR CONCERNS AT THIS TIME.
[2024-06-07] MEDS ORDERED: hydrOXYzine 25 MG TABLET PO SCH (21:00)
[2024-06-07] MEDS ORDERED: PRAMIpexole DI-HCL 0.25 MG TABLET PO SCH (21:00)
--- NOTE | 2024-06-07 23:05 | DS ---
Discharge Summary DIAGNOSE(S): [Hyperkalemia] HOSPITAL COURSE SUMMARY: [Patient was asymptomatic blood pressure was better controlled with hydralazine and discharged to be followed on [facility]] RECLAMATION ENGINEER(S): [Nephrology] PROCEDURE(S)/TREATMENT(S): [] PROBLEM(S): [] FOLLOW-UP TEST(S): [None] DISCHARGE INSTRUCTIONS: [In 1-2 days] Home Meds Reported Medications Rosuvastatin Calcium (Rosuvastatin Calcium) 5 Mg Tablet, 1 TAB PO DAILY 06/06/24 Meloxicam (Meloxicam) 15 Mg Tablet, 0.5-1 TAB PO DAILY 06/06/24 Esomeprazole Magnesium (Esomeprazole Magnesium) 40 Mg Capsule.dr, 1 CAP PO DAILY 06/06/24 Metoprolol Tartrate (Lopressor) 25 Mg Tab, 1 TAB PO BID 06/06/24 Lorazepam (Ativan) 2 Mg Tablet, 2 MG PO Q6HPRN PRN for INSOMNIA 06/06/24 Pramipexole Di-HCl (Pramipexole Dihydrochloride) 0.125 Mg Tablet, 1 TAB PO HS 06/06/24 Tramadol Hcl (Tramadol HCl) 50 Mg Tablet, 0.5-1 TAB PO QIDP PRN for PAIN 06/06/24 Acetaminophen with Codeine (Acetaminophen-Cod #3 Tablet) 300 Mg-30 Mg Tablet, 1 TAB PO Q6H 06/06/24 Hydralazine HCl (Apresoline) 50 Mg Tab, 1 TAB PO BID 06/06/24 Lorazepam (Lorazepam) 2 Mg Tablet, 2 MG PO BID, TAB 12/06/16 Losartan/Hydrochlorothiazide (Losartan-Hctz 100-12.5 mg Tab) 1 Each Tablet, 1 EACH PO DAILYBKFST, TAB 12/06/16 Pantoprazole Sodium (Pantoprazole Sodium) 20 Mg Tablet.dr, 20 MG PO DAILY, TAB 12/06/16 Gabapentin (Gabapentin) 300 Mg/6 Ml Solution, 300 MG PO HS, ML 12/06/16 Hydroxyzine HCl (Hydroxyzine HCl) 50 Mg Tablet, 50 MG PO HS, TAB 12/06/16 Methocarbamol (Methocarbamol) 500 Mg Tablet, 500 MG PO Q8H PRN for MUSCLE SPASM, TAB 12/06/16 Pravastatin Sodium (Pravastatin Sodium) 40 Mg Tablet, 40 MG PO HS, TAB 12/06/16 Tramadol HCl/Acetaminophen (Tramadol-Acetaminophn 37.5-325) 1 Each Tablet, 2 CAP PO BIDAC, TAB 12/06/16 Amlodipine Besylate (Amlodipine Besylate) 5 Mg Tablet, 5 MG PO DAILYLUNCH, TAB 12/06/16 Atenolol (Atenolol) 100 Mg Tablet, 100 MG PO HS, TAB 12/06/16 GURINDER VILA MD Jun 07, 2024 23:05
== END 2024-06-07 13:00 | disposition home or self-care (01) ==
LOC: EDH 13:14 → EDHIP 19:42 → INTOOBSV 19:42 → 3AH 22:00
PROVIDERS: ADMIT Internal Medicine; ATTEND Internal Medicine
DX: E87.5 Hyperkalemia (principal); N17.9 Acute kidney failure, unspecified; I12.9 Hypertensive chronic kidney disease with stage 1 through stage 4 chronic kidney disease, or unspecified chronic kidney disease; N18.32 Chronic kidney disease, stage 3b; D63.1 Anemia in chronic kidney disease; I25.10 Atherosclerotic heart disease of native coronary artery without angina pectoris; Z79.899 Other long term (current) drug therapy
CPT/HCPCS: 80048 ×2; 85025 ×2; 36415 ×2; 96365; 99291; 96375; 93005; 80053; J1815; G0378 ×17; J7070; J0612

== ENCOUNTER → 2024-06-25 | Outpatient (CLI) | payer MEDICARE ==
[~2024-06-25] MED LIST changes: +ACET-2079 PO; +ESOM40CA66 PO; +HYDR50TA36 PO; +LORA2TAB80 PO; +MELO-108 PO; +METO25 PO; +PRAM0.129 PO; +ROSU5TAB51 PO; +TRAM50TA4 PO
--- NOTE | 2024-06-29 08:10 | HMCSR ---
APPROVED REPORT Laterality: Bilateral Indications PVD VELOCITY AND DOPPLER WAVEFORM ANALYSIS OIL RIGGER (R) 215.3cm/sec, Biphasic, Moderate > 50%OIL RIGGER (L) 211.1cm/sec, Biphasic, Moderate > 50% OIL RIGGER Prox. (R) cm/sec, OIL RIGGER Prox. (L) cm/sec, Prof Fem Art. (R) 112.6cm/sec, Biphasic, Prof Fem Art. (L) 118.2cm/sec, Biphasic, Fem Art Prox. (R) 135.4cm/sec, Biphasic, Fem Art Prox. (L) 156.2cm/sec, Biphasic, Fem Art Mid. (R) 115.8cm/sec, Biphasic, Fem Art Mid. (L) 153.3cm/sec, Biphasic, Fem Art Dist (R) 137.0cm/sec, Biphasic, Fem Art Dist. (L) 150.1cm/sec, Biphasic, Pop Art(AK) (R) 141.9cm/sec, Biphasic, Pop Art (AK) (L) 221.9cm/sec, Biphasic, Moderate > 50% Pop Art (Fossa)(R) 103.0cm/sec, Biphasic, Pop Art (Fossa) (L) 93.0cm/sec, Biphasic, Pop Art(BK) (R) 127.3cm/sec, Biphasic, Pop Art (BK) (L) 120.7cm/sec, Biphasic, GEOPOLITICS TEACHER Prox. (R) 118.7cm/sec, Biphasic, GEOPOLITICS TEACHER Prox. (L) 98.7cm/sec, Biphasic, GEOPOLITICS TEACHER Mid. (R) 71.0cm/sec, Biphasic, GEOPOLITICS TEACHER Mid. (L) 97.0cm/sec, Biphasic, GEOPOLITICS TEACHER Dist. (R) 78.1cm/sec, Biphasic, GEOPOLITICS TEACHER Dist. (L) 93.8cm/sec, Biphasic, Per Art Prox. (R) 62.0cm/sec, Biphasic, Per Art Prox. (L) 45.3cm/sec, Biphasic, Per Art Mid. (R) 47.0cm/sec, Biphasic, Per Art Mid. (L) 38.0cm/sec, Biphasic, Per Art Dist. (R) 64.4cm/sec, Biphasic, Per Art Dist. (L) 79.9cm/sec, Biphasic, DAMIEN Prox. (R) 118.1cm/sec, Biphasic, DAMIEN Prox. (L) 95.1cm/sec, Biphasic, DAMIEN Mid. (R) 100.0cm/sec, Biphasic DAMIEN Mid. (L) 90.0cm/sec, Biphasic, DAMIEN Dist. (R) 119.1cm/sec, Biphasic, DAMIEN Dist. (L) 163.1cm/sec, Biphasic, Technologist Impression Diffuse atherosclerosis throughout the bilateral lower extremities. Velocities are suggestive of >50% stenosis in the RCFA, LCFA and Left proximal Popliteal artery. Conclusion Severe stenosis of bilateral common femoral arteries and left popliteal artery greater than 51-75% Consider formal angiography of clinically indicated Conclusion Severe stenosis of bilateral common femoral arteries and left popliteal artery greater than 51-75% Consider formal angiography of clinically indicated
== END | disposition home or self-care (01) ==
LOC: SHCH 09:51
PROVIDERS: ATTEND Internal Medicine Cardiovascular Disease
DX: I70.203 Unspecified atherosclerosis of native arteries of extremities, bilateral legs (principal)
CPT/HCPCS: 93925

== ENCOUNTER → 2024-07-16 | Outpatient (CLI) | payer MEDICARE ==
[2024-07-16 12:19] LABS: BASOPHILS # (AUTO) 0.06 K/uL (0.00-0.20); BASOPHILS % (AUTO) 0.8 % (0.0-5.0); EOSINOPHILS # (AUTO) 0.33 K/uL (0.00-0.70); EOSINOPHILS % (AUTO) 4.7 % (0.0-8.0); HEMATOCRIT 34.6 % (36-48); IMMATURE GRANULOCYTE ABSOLUTE 0.03 K/uL (0-1); LYMPHOCYTES # (AUTO) 1.6 K/uL (1.0-4.8); MEAN CORPUSCULAR HEMOGLOBIN 29.4 pg (27.0-33.0); MEAN CORPUSCULAR HGB CONC 32.1 g/dL (32.0-36.0); MEAN CORPUSCULAR VOLUME 91.8 fL (79-99); MONOCYTES # (AUTO) 0.6 K/uL (0.1-1.0); MONOCYTES % (AUTO) 8.1 % (3.0-13.0); NEUTROPHILS # (AUTO) 4.5 K/uL (1.8-7.7); PLATELET COUNT (AUTO) 349 K/uL (130-400); RED BLOOD CELL COUNT(AUTO) 3.77 MIL/uL (4.00-5.50); WHITE BLOOD COUNT (AUTO) 7.1 K/uL (4.8-10.8)
[2024-07-16 12:29] LABS: INR 0.97 (0.85-1.15); PROTHROMBIN TIME 10.3 SEC (9.6-11.6)
[2024-07-16 12:35] LABS: CREATININE 1.7 mg/dL (0.5-1.0); POTASSIUM 4.7 mmol/L (3.5-5.1)
== END | disposition home or self-care (01) ==
LOC: LAB 09:58
PROVIDERS: ATTEND Internal Medicine Cardiovascular Disease
DX: I87.1 Compression of vein (principal); I87.2 Venous insufficiency (chronic) (peripheral); I48.0 Paroxysmal atrial fibrillation
CPT/HCPCS: 36415; 80048; 85025; 85610; 85730

== ENCOUNTER → 2024-08-07 | Outpatient (CLI) | payer MEDICARE ==
[2024-08-07 12:11] LABS: BASOPHILS # (AUTO) 0.04 K/uL (0.00-0.20); BASOPHILS % (AUTO) 0.6 % (0.0-5.0); EOSINOPHILS # (AUTO) 0.34 K/uL (0.00-0.70); EOSINOPHILS % (AUTO) 4.9 % (0.0-8.0); IMMATURE GRANULOCYTE ABSOLUTE 0.03 K/uL (0-1); LYMPHOCYTES # (AUTO) 1.9 K/uL (1.0-4.8); LYMPHOCYTES % (AUTO) 27.7 % (21.0-51.0); MEAN CORPUSCULAR HEMOGLOBIN 29.8 pg (27.0-33.0); MEAN CORPUSCULAR HGB CONC 32.6 g/dL (32.0-36.0); MEAN CORPUSCULAR VOLUME 91.4 fL (79-99); MONOCYTES # (AUTO) 0.7 K/uL (0.1-1.0); MONOCYTES % (AUTO) 9.5 % (3.0-13.0); NEUTROPHILS # (AUTO) 3.9 K/uL (1.8-7.7); NEUTROPHILS % (AUTO) 56.9 % (40.0-77.0); PLATELET COUNT (AUTO) 320 K/uL (130-400); RED BLOOD CELL COUNT(AUTO) 3.72 MIL/uL (4.00-5.50); RED CELL DISTRIBUTION WIDTH 12.1 % (11.0-15.5); WHITE BLOOD COUNT (AUTO) 6.9 K/uL (4.8-10.8)
[2024-08-07 12:21] LABS: INR 0.96 (0.85-1.15); PROTHROMBIN TIME 10.2 SEC (9.6-11.6)
[2024-08-07 12:22] LABS: PARTIAL THROMBOPLASTIN TIME 25.1 SEC (26.3-35.5)
[2024-08-07 12:32] LABS: CREATININE 1.9 mg/dL (0.5-1.0); POTASSIUM 4.5 mmol/L (3.5-5.1)
== END | disposition home or self-care (01) ==
LOC: LAB 10:25
PROVIDERS: ATTEND Student in an Organized Health Care Education/Training Program
DX: Z01.812 Encounter for preprocedural laboratory examination (principal); I87.1 Compression of vein; Z79.899 Other long term (current) drug therapy; I35.0 Nonrheumatic aortic (valve) stenosis; E87.5 Hyperkalemia; I73.9 Peripheral vascular disease, unspecified; R51.9 Headache, unspecified; I25.10 Atherosclerotic heart disease of native coronary artery without angina pectoris; I13.10 Hypertensive heart and chronic kidney disease without heart failure, with stage 1 through stage 4 chronic kidney disease, or unspecified chronic kidney disease; N18.9 Chronic kidney disease, unspecified
CPT/HCPCS: 36415; 80048; 85025; 85610; 85730